=== PATIENT | female | born 1990 | race African-American/Black ===

== ENCOUNTER 2016-12-25 06:03 | Inpatient (IN) ==
[2016-12-25] MEDS ORDERED: MEPERIDINE 50 MG/1 ML VIAL IV PRN (06:32)
[2016-12-25] MEDS ORDERED: TERBUTALINE 1 MG/1 ML VIAL SUBCUT PRN (06:32)
[2016-12-25] MEDS ORDERED: ONDANSETRON 4 MG/2 ML VIAL IV PRN (06:32)
[2016-12-25] MEDS ORDERED: LACTATED RINGERS 500 ML IV PRN (06:32)
[2016-12-25] MEDS: LACTATED RINGERS 1,000 ML IV SCH ×2 (06:40→17:00)
[2016-12-25] MEDS ORDERED: OXYTOCIN/LR 20 UNIT/1,000 ML BAG IV SCH (07:00)
[2016-12-25 07:42] LABS: Basophils % 0.1 % (0.0-0.8); Eosinophils # 0.1 10*3/uL (0.0-0.87); Eosinophils % 0.9 % (0.00-10.9); Hematocrit 28.9 VOL% (35.7-47.0); Hemoglobin 8.9 GM/DL (12.0-16.0); Immature Granulocytes % 0.3 %; Immature Granulocytes Absolute 0.03 #; Lymphocytes # 2.4 10*3/uL (1.4-4.0); Lymphocytes % 26.4 % (21.3-54.2); Mean Corpuscular HGB Conc 30.8 GM/DL (32-36); Mean Corpuscular Hemoglobin 27 PG (27-34); Mean Corpuscular Volume 86.8 FL (87-102); Mean Platelet Volume 10.2 FL (9.6-12.0); Monocytes # 0.5 10*3/uL (0.11-0.8); Monocytes % 5.8 % (1.7-12.7); Neutrophils % 66.5 % (38.7-73.9); Platelet Count 287 T/CUMM (130-400); Red Blood Count 3.33 MC/CUMM (3.8-5.5); Red Cell Distribution Width 13.2 % (9.3-17.3); White Blood Count 9.1 T/CUMM (4-12)
[2016-12-25] MEDS ORDERED: diphenhydrAMINE 50 MG/1 ML VIAL IV PRN ×2 (08:36)
[2016-12-25] MEDS ORDERED: PROMETHAZINE 25 MG/1 ML VIAL IM ONE (08:36)
[2016-12-25] MEDS ORDERED: hydrOXYzine HCL 25 MG/1 ML VIAL IM PRN (08:36)
[2016-12-25] MEDS ORDERED: LACTATED RINGERS 1,000 ML IV ONE (08:36)
[2016-12-25] MEDS ORDERED: ePHEDrine 50 MG/ML AMP IV PRN (08:36)
[2016-12-25] MEDS ORDERED: FAMOTIDINE 20 MG/2 ML VIAL IV ONE (08:36)
[2016-12-25] MEDS ORDERED: CITRIC ACID/SODIUM CITRATE 30 ML UDCUP PO ONE (08:36)
[2016-12-25] MEDS ORDERED: fentaNYL 2 MCG/ROPIV 0.2% EPID 150 ML EPIDURAL SCH (08:36)
[2016-12-25] MEDS ORDERED: ePHEDrine 50 MG/ML AMP ONE (08:51)
--- NOTE | 2016-12-25 08:57 | OB/GYN History & Physical ---
History of Present Illness Chief complaint: In for elective induction of labor due to term History of present illness: Ms. Dixon is a 26 year old female who is a 3 para 2 living 2. Her VICTOR HUGO is 01/01/2015 for an estimated gestational age of 39 weeks. She presents to the labor department for elective induction of labor due to term . The risks and benefits have been thoroughly discussed with this patient and significant other and plan of care has been discussed with Dr. Willis, all parties are in agreement with plan. The patient received her care at the [facility], she received routine care. She had an uneventful course of . The patient has had 2 previous vaginal delivers and she reported no complications with either . labs: She is a positive, RPR is nonreactive, hepatitis B is negative, HIV is negative, rubella is immune, Pap smear was within normal limits. GBS culture negative. Review of systems is negative with the exception of above Home Medications Medication Instructions Recorded Confirmed Type Levothyroxine Tab [Synthroid Tab] 25 mcg PO DAILY@0700 01/16/15 12/25/16 History Allergies Allergy/AdvReac Type Severity Reaction Status Date / Time adhesive tape Allergy Severe RASH Verified 12/25/16 06:32 Penicillins Allergy Unknown Unknown/Unable Verified 12/25/16 06:32 to obtain Sulfa (Sulfonamide Allergy Unknown Unknown/Unable Verified 12/25/16 06:32 Antibiotics) to obtain 12 point system: reviewed and no additional remarkable complaints except as stated Medical,Surgical,& Family Hx - Medical History Endocrine: History of: Thyroid Disorder (HYPOTHYROIDISM) Musculoskeletal: History of: Back/Neck Problems (CHRONIC BACK PAIN), Degenerative Disk Disease Reproductive: History of: Sexually Transmitted Disorders (chlamydia) - Surgical History Thoracic Surgeries: Patient denies;: Organ Transplant HEENT Surgeries: Surgical HX of: Tonsilectomy & Adenoidectomy Abdominal Surgeries: Surgical HX of: Abdominal Surgery (cysts removed from abdomen), Appendectomy Orthopedic Surgeries: Surgical HX of;: Spinal Surgery (back surgery) - Family History Family History: Reports;: Family Cancer (MATERNAL grandmother ovarian ca 69), Family Diabetes (father 39), Family Hypertension (mother 44, father 34, grandmother 65, grandfather 50's), Family Stroke (grandfather 73) Denies;: Family Anesthesia Reaction, Family Heart Disease, Family Psychiatric Problems - Social History Smoking Status: Never smoker Frequency of Alcohol Use: None Type of Drug Use: None Marital Status: Single Lives With:: Significant Other Functional capacity: independent ambulation 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 - Constitutional Vitals: Vital Signs Temp Pulse Resp BP Pulse Ox 12/25/16 07:58 97.6 F 74 18 100/64 99 General appearance: mild distress - Antepartum / Post Antepartum Exam Cervix -Dilatation: 3-4 cm Effacement: 70% Station: -1 Rupture: AROM Presentation: vtx Heart Rate: 140s Breast: bilateral: normal Abdomen obstetrics: Present: bowel sounds normal Vagina: Present: normal moisture Uterus exam: Present: enlarged - Respiratory Respiratory exam: Present: clear to auscultation bilaterally - Cardiovascular Cardiovascular exam: Present: regular rate and rhythm - GI/Abdominal GI/Abdominal exam: Present: normal bowel sounds, soft - Extremities Exam Extremities exam: Present: normal inspection - Neurological Exam Neurological exam: Present: alert, oriented X3 - Psychiatric Psychiatric exam: Present: normal affect, normal mood - Skin Skin exam: Present: normal color, warm Assessment and Plan (1) Term Status: Acute Assessment and plan: Admit IV Fluids IV Pitocin per protocol Epidural if desired AROM Anticipate Current Visit: Yes Results - Labs CBC & BMP: 12/25/16 07:09
--- NOTE | 2016-12-25 09:03 | Event Note ---
845: AROM with clear fluid noted. Pt tolerated procedure well.
[2016-12-25 10:51] LABS: Apearance,Urine CLEAR (Clear); Bilirubin,Urine Negative (Negative); Blood, Urine Negative (Negative); Glucose,Urine (UA) Negative (Negative); Ketones,Urine 20 mg/dL (Negative); Mucus,Urine Few /LPF (Occasional); Nitrite,Urine Negative (Negative); Protein,Urine 30 MG/DL; RBC,Urine 2 /HPF (0-4); Squamous Epithelial Cell,Urine Occasional /HPF (0-10); Urine Color Yellow (Yellow); Urine Specific Gravity 1.025 (1.001-1.035); WBC,Urine 1 /HPF (0-6)
[2016-12-25] MEDS ORDERED: miSOPROStol 200 MCG TABLET ONE (14:29)
[2016-12-25] MEDS ORDERED: METHYLERGONOVINE 0.2 MG/1 ML AMP ONE (14:29)
[2016-12-25] MEDS ORDERED: LIDOCAINE 1% 50 ML VIAL ONE (14:30)
--- NOTE | 2016-12-25 15:30 | Event Note ---
HPI: Ms. Dixon presented for elective induction of labor due to term . The risks and benefits were thoroughly discussed with patient, plan of care was discussed with Dr. Willis in all parties were in agreement with plan. Stage I: The patient was admitted she received IV fluids and IV Pitocin per protocol. Artificial rupture membranes was performed with clear fluid noted. The patient received an epidural for pain control. She progressed in labor with a CAT 1 tracing. The patient had an uneventful course of labor. Stage II: The patient was complete and complaining of pressure and desired to push. She pushed for approximately 5 minutes after which time the infant's head was delivered. The mouth and nose suctioned on the perineum. The remainder of the infant was delivered at 1514, a viable male was noted. Apgars were 8 at 1 minute and 9 at 5 minutes. weight was 6 pounds and 8 oz. A cord pH was obtained and sent to the lab. Stage III: Spontaneous delivery of a Simmons placenta with a 3 vessel cord noted. The placenta was further examined and appeared to be grossly intact. The vagina and cervix was inspected with a small perineal abrasion noted which was hemostatic. Otherwise no tears or lacerations were noted. Estimated blood loss was approximately 125 mL. At the time of dictation mother and baby are both in stable condition.
[2016-12-25] MEDS ORDERED: DIPH/TET/ACEL PERT BOOSTER VACCINE 0.5 ML VIAL IM ONE (15:31)
[2016-12-25] MEDS ORDERED: ACETAMINOPHEN 325 MG TABLET PO PRN (15:31)
[2016-12-25] MEDS ORDERED: LANOLIN 50% CREAM 0.3 OZ TUBE TOP PRN (15:31)
[2016-12-25] MEDS ORDERED: MEASLES/MUMPS/RUBELLA VACCINE 0.5 ML VIAL SUBCUT ONE (15:31)
[2016-12-25] MEDS ORDERED: oxyCODONE/ACETAMINOPHEN 5-325 MG TABLET PO PRN (15:31)
[2016-12-25] MEDS ORDERED: RHO(D) IMMUNE GLOBULIN 300 MCG SYRINGE IM ONE (15:31)
[2016-12-25] MEDS ORDERED: HYDROCORTISONE 2.5% RECTAL CREAM 30 GM TUBE TOP PRN (15:31)
[2016-12-25] MEDS ORDERED: BISACODYL 10 MG SUPP RECTAL PRN (15:31)
[2016-12-25] MEDS ORDERED: OXYTOCIN/LR 20 UNIT/1,000 ML BAG IV ONE (15:31)
[2016-12-25] MEDS ORDERED: BENZOCAINE 20%/MENTHOL 0.5% SPRAY 56 GM CAN TOP PRN (15:31)
[2016-12-25] MEDS ORDERED: WITCH HAZEL PADS 100/JAR TOP PRN (15:31)
[2016-12-25] MEDS ORDERED: ACETAMINOPHEN/CODEINE 300-30 MG TABLET PO PRN (15:34)
[2016-12-25 15:41] LABS: Cord Venous Blood HCO3 24.2 MMOL/L; Cord Venous Blood PCO2 42.6 MMHG; Cord Venous Blood PO2 29.7 MMHG
[2016-12-25] MEDS: IBUPROFEN 800 MG TABLET PO PRN ×2 (16:22→22:31)
[2016-12-25] MEDS: DOCUSATE SODIUM 100 MG CAPSULE PO SCH (21:20)
[2016-12-25] MEDS: oxyCODONE/ACETAMINOPHEN 5-325 MG TABLET PO PRN (21:20)
[2016-12-26] MEDS: oxyCODONE/ACETAMINOPHEN 5-325 MG TABLET PO PRN ×4 (04:37→21:25)
[2016-12-26] MEDS: IBUPROFEN 800 MG TABLET PO PRN ×2 (04:37→21:22)
[2016-12-26 06:44] LABS: Basophils % 0.2 % (0.0-0.8); Eosinophils # 0.1 10*3/uL (0.0-0.87); Hematocrit 27.8 VOL% (35.7-47.0); Hemoglobin 8.8 GM/DL (12.0-16.0); Immature Granulocytes % 0.3 %; Immature Granulocytes Absolute 0.03 #; Lymphocytes # 3.2 10*3/uL (1.4-4.0); Lymphocytes % 27.9 % (21.3-54.2); Mean Corpuscular HGB Conc 31.7 GM/DL (32-36); Mean Corpuscular Hemoglobin 27 PG (27-34); Mean Corpuscular Volume 85.5 FL (87-102); Mean Platelet Volume 10.1 FL (9.6-12.0); Monocytes # 0.8 10*3/uL (0.11-0.8); Monocytes % 6.8 % (1.7-12.7); Neutrophils # 7.3 10*3/uL (1.4-7.4); Neutrophils % 63.8 % (38.7-73.9); Platelet Count 250 T/CUMM (130-400); Red Blood Count 3.25 MC/CUMM (3.8-5.5); Red Cell Distribution Width 13.2 % (9.3-17.3); White Blood Count 11.4 T/CUMM (4-12)
[2016-12-26] MEDS ORDERED: oxyCODONE/ACETAMINOPHEN 5-325 MG TABLET PO PRN (07:39)
[2016-12-26] MEDS: DOCUSATE SODIUM 100 MG CAPSULE PO SCH ×2 (08:31→21:22)
--- NOTE | 2016-12-26 09:34 | OB/GYN Progress Note ---
Assessment and Plan (1) Term Status: Acute Assessment and plan: Admit IV Fluids IV Pitocin per protocol Epidural if desired AROM Anticipate Current Visit: Yes (2) Vaginal delivery Status: Acute Assessment and plan: Initiate routine orders. 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 Bonding with . 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 - Constitutional Vitals: Vital Signs Temp Pulse Resp BP Pulse Ox 12/26/16 07:19 97.2 F L 73 20 113/67 97 12/26/16 04:00 97.5 F L 78 20 119/62 96 12/25/16 23:50 97.9 F 64 20 126/68 98 12/25/16 22:50 97.7 F 73 20 109/65 97 12/25/16 21:50 97.5 F L 76 20 108/55 96 12/25/16 21:20 97.6 F 77 18 117/61 98 12/25/16 20:50 97.8 F 69 18 104/52 96 12/25/16 20:00 97.5 F L 84 22 138/60 General appearance: no acute distress - Antepartum / Post Antepartum Exam Breast: bilateral: normal Abdomen obstetrics: Present: bowel sounds normal Vagina: Present: discharge (light lochia rubra) Uterus exam: Present: enlarged (FF ML) Anus/Rectum: Present: normal perianal skin - Respiratory Respiratory exam: Present: clear to auscultation bilaterally - Cardiovascular Cardiovascular exam: Present: regular rate and rhythm - GI/Abdominal GI/Abdominal exam: Present: normal bowel sounds, soft - Extremities Exam Extremities exam: Present: normal inspection - Neurological Exam Neurological exam: Present: alert, oriented X3 - Skin Skin exam: Present: normal color, warm Results - Labs CBC & BMP: 12/26/16 06:25
--- NOTE | 2016-12-26 11:21 | Anesthesia ---
Anesthesia Post OP - Post Ansesthetic Evaluation Patient seen in post op: Yes Resp: within normal limits CV: within normal limits Mental: within normal limits Temp: within normal limits [id number]: within normal limits Nausea and Vomiting: within normal limits Pain: within normal limits
[2016-12-27] MEDS: IBUPROFEN 800 MG TABLET PO PRN (08:18)
[2016-12-27] MEDS: oxyCODONE/ACETAMINOPHEN 5-325 MG TABLET PO PRN (08:19)
[2016-12-27] MEDS: DOCUSATE SODIUM 100 MG CAPSULE PO SCH (09:44)
[2016-12-27] MEDS ORDERED: FERROUS SULFATE 325 MG TABLET PO SCH (10:00)
[2016-12-27 11:13] VITALS: BP 130/71
--- NOTE | 2016-12-27 12:46 | Discharge Summary ---
Hospital Course - Hospital Course Hospital Course: day #2 Status post vaginal Patient is ambulating well, voiding, passing gas and has had a bowel movement. Extremities a well within normal limits neurologically grossly intact Status post vaginal DC today follow-up our office in 6 weeks Specialty Discharge - Follow Up or Referrals Follow up with: Jose M Willis MD [Physician] - 02/06/17 10:00 am Discharge Plan - Discharge Data Condition at Discharge: Stable Discharge Diet: advance to your usual diet Activity: increase activity as tolerated Hygiene: no restrictions Contact your physician if you experience:: fever over 101, Bleeding - Discharge Medications New Ferrous Sulfate Tab [Feosol Original Tab] 325 mg PO BID #60 tablet Acetamin/Codeine 300-30 Tab [Tylenol/Codeine #3] 2 tablet PO Q4H PRN #30 tablet PRN Reason: Pain Mild (1-3) Ibuprofen Tab [Motrin Tab] 800 mg PO Q6H PRN #30 tablet PRN Reason: Pain Moderate (4-7) No Action Levothyroxine Tab [Synthroid Tab] 25 mcg PO DAILY@0700 - Follow Up or Referral Follow Up: Jose M Willis MD [Physician] - 02/06/17 10:00 am - Forms/Instructions Instructions: Perineal Care (DC), Vaginal Delivery (DC), Bleeding (DC) Exam - Constitutional Vitals: Period Temp Pulse Resp BP Sys/Mathew Pulse Ox Last 24 Hr 97.3 F-98.1 F 72-86 18-20 105-130/47-71 97-99 Discharge Results Procedures and tests throughout hospitalization: Pending Orders 12/25/16 06:32 Urinalysis Routine DS: Provider Date of admission: 12/25/16 06:32 Primary care physician: . No PCP Attending physician on admission: Jose M Willis MD Consults: 12/25/16 06:32 Consult to Anesthesiology [CONS] Routine Consulting Provider: Reason for Anesthesiology: Epidural Consult Comment: Epidural for pain managment 12/25/16 06:47 Consult to Dietitian [CONS] Routine Reason for Dietitian: Diet Recommendations 12/25/16 15:31 Consult to Automation Tester [CONS] Routine Consult Automation Tester: Breast Feeding Discharging clinician: Jose M Willis MD
== END 2016-12-27 14:10 | disposition home or self-care (01) | DRG 775 ==
LOC: N.LDOUT 06:03 → N.LD 06:08 → N.OB 20:50
PROVIDERS: ADMIT Obstetrics & Gynecology; ATTEND Obstetrics & Gynecology

== ENCOUNTER 2019-01-16 06:26 | Inpatient (IN) ==
[2019-01-16] MEDS ORDERED: MEPERIDINE 50 MG/1 ML VIAL IV PRN (06:47)
[2019-01-16] MEDS ORDERED: OXYTOCIN/LR 20 UNIT/1,000 ML BAG IV SCH (07:00)
[2019-01-16 07:20] LABS: Basophils % 0.2 % (0.0-0.8); Eosinophils # 0.1 10*3/uL (0.0-0.87); Eosinophils % 0.6 % (0.00-10.9); Hematocrit 28.5 VOL% (35.7-47.0); Hemoglobin 8.6 GM/DL (12.0-16.0); Immature Granulocytes % 0.6 %; Immature Granulocytes Absolute 0.05 #; Lymphocytes # 1.8 10*3/uL (1.4-4.0); Lymphocytes % 20.4 % (21.3-54.2); Mean Corpuscular HGB Conc 30.2 GM/DL (32-36); Mean Corpuscular Hemoglobin 26 PG (27-34); Mean Corpuscular Volume 86.9 FL (87-102); Mean Platelet Volume 9.6 FL (9.6-12.0); Monocytes # 0.5 10*3/uL (0.11-0.8); Monocytes % 5.5 % (1.7-12.7); Neutrophils # 6.4 10*3/uL (1.4-7.4); Neutrophils % 72.7 % (38.7-73.9); Platelet Count 256 T/CUMM (130-400); Red Blood Count 3.28 MC/CUMM (3.8-5.5); Red Cell Distribution Width 13.6 % (9.3-17.3); White Blood Count 8.8 T/CUMM (4-12)
[2019-01-16 07:44] LABS: Alanine Aminotransferase < 9 U/L (13-56); Albumin 2.4 G/DL (3.4-5.0); Alkaline Phosphatase 203 U/L (45-117); Aspartate Amino Transferase 12 U/L (0-37); Blood Urea Nitrogen 5 MG/DL (7-18); Calcium 8.4 MG/DL (8.5-10.1); Glucose 79 MG/DL (74-106); Osmolality,Calculated 272.5 MOS/KG (273-304); Potassium 3.7 MMOL/L (3.5-5.1); Sodium 139 MMOL/L (136-145); Total Protein 6.4 G/DL (6.4-8.3)
[2019-01-16] MEDS: LACTATED RINGERS 1,000 ML IV SCH ×4 (07:50→21:29)
[2019-01-16] MEDS ORDERED: PROMETHAZINE 25 MG/1 ML VIAL IM ONE (08:57)
[2019-01-16] MEDS ORDERED: hydrOXYzine HCL 25 MG/1 ML VIAL IM PRN (08:57)
[2019-01-16] MEDS ORDERED: CITRIC ACID/SODIUM CITRATE 30 ML UDCUP PO ONE (08:57)
[2019-01-16] MEDS ORDERED: FAMOTIDINE 20 MG/2 ML VIAL IV ONE (08:57)
[2019-01-16] MEDS ORDERED: diphenhydrAMINE 50 MG/1 ML VIAL IV PRN (08:57)
[2019-01-16] MEDS ORDERED: NALOXONE 0.4 MG/ML VIAL IV PRN (08:57)
[2019-01-16] MEDS ORDERED: fentaNYL 2 MCG/ROPIV 0.2% EPID 100 ML EPIDURAL SCH (09:00)
[2019-01-16] MEDS: CLINDAMYCIN INJ 900 MG in PREMIX 1 EACH IV SCH ×2 (09:15→16:29)
[2019-01-16] MEDS: ePHEDrine 50 MG/ML AMP IV PRN ×2 (10:36→10:41)
[2019-01-16] MEDS: ONDANSETRON 4 MG/2 ML VIAL IV PRN ×2 (11:08→16:51)
[2019-01-16 11:26] LABS: Apearance,Urine CLEAR (Clear); Bilirubin,Urine Negative (Negative); Blood, Urine Negative (Negative); Glucose,Urine (UA) Negative (Negative); Ketones,Urine 80 mg/dL (Negative); Mucus,Urine Few /LPF (Occasional); Nitrite,Urine Negative (Negative); Protein,Urine 30 MG/DL; RBC,Urine 2 /HPF (0-4); Urine Color Yellow (Yellow); Urine Specific Gravity 1.025 (1.001-1.035); WBC,Urine <1 /HPF (0-6)
[2019-01-16] MEDS ORDERED: miSOPROStol 200 MCG TABLET ONE (19:40)
[2019-01-16] MEDS ORDERED: TRANEXAMIC ACID 1,000 MG/10 ML VIAL ONE (19:41)
[2019-01-16] MEDS ORDERED: METHYLERGONOVINE 0.2 MG/1 ML AMP ONE (19:41)
[2019-01-16] MEDS ORDERED: CARBOPROST TROMETHAMINE 250 MCG/ML AMP IM ONE (19:41)
[2019-01-16] MEDS ORDERED: LIDOCAINE 1% 50 ML VIAL ONE (19:44)
[2019-01-17] MEDS: CLINDAMYCIN INJ 900 MG in PREMIX 1 EACH IV SCH (00:44)
[2019-01-17] MEDS ORDERED: MEASLES/MUMPS/RUBELLA VACCINE 0.5 ML VIAL SUBCUT ONE (05:23)
[2019-01-17] MEDS ORDERED: ACETAMINOPHEN 325 MG TABLET PO PRN (05:23)
[2019-01-17] MEDS ORDERED: oxyCODONE/ACETAMINOPHEN 5-325 MG TABLET PO PRN (05:23)
[2019-01-17] MEDS ORDERED: DIPH/TET/ACEL PERT BOOSTER VACCINE 0.5 ML VIAL IM ONE (05:23)
[2019-01-17] MEDS ORDERED: HYDROCORTISONE 2.5% RECTAL CREAM 30 GM TUBE TOP PRN (05:23)
[2019-01-17] MEDS ORDERED: RHO(D) IMMUNE GLOBULIN 300 MCG SYRINGE IM ONE (05:23)
[2019-01-17] MEDS ORDERED: WITCH HAZEL PADS 100/JAR TOP PRN (05:23)
[2019-01-17] MEDS ORDERED: LANOLIN 50% CREAM 0.3 OZ TUBE TOP PRN (05:23)
[2019-01-17] MEDS ORDERED: ONDANSETRON 4 MG/2 ML VIAL IV PRN (05:23)
[2019-01-17] MEDS ORDERED: BISACODYL 10 MG SUPP RECTAL PRN (05:23)
[2019-01-17] MEDS ORDERED: OXYTOCIN/LR 20 UNIT/1,000 ML BAG IV ONE (05:23)
[2019-01-17] MEDS ORDERED: BENZOCAINE 20%/MENTHOL 0.5% SPRAY 56 GM CAN TOP PRN (05:23)
[2019-01-17] MEDS: IBUPROFEN 800 MG TABLET PO PRN ×2 (06:45→23:29)
[2019-01-17] MEDS: oxyCODONE/ACETAMINOPHEN 5-325 MG TABLET PO PRN ×3 (09:04→23:29)
[2019-01-17] MEDS: DOCUSATE SODIUM 100 MG CAPSULE PO SCH ×2 (16:51→20:43)
[2019-01-18 02:15] LABS: Basophils % 0.2 % (0.0-0.8); Eosinophils # 0.2 10*3/uL (0.0-0.87); Eosinophils % 1.6 % (0.00-10.9); Hematocrit 24.2 VOL% (35.7-47.0); Hemoglobin 7.5 GM/DL (12.0-16.0); Immature Granulocytes % 0.5 %; Immature Granulocytes Absolute 0.05 #; Lymphocytes # 2.8 10*3/uL (1.4-4.0); Lymphocytes % 28.6 % (21.3-54.2); Mean Corpuscular Hemoglobin 27 PG (27-34); Mean Corpuscular Volume 85.5 FL (87-102); Mean Platelet Volume 9.8 FL (9.6-12.0); Monocytes # 0.6 10*3/uL (0.11-0.8); Monocytes % 6.4 % (1.7-12.7); Neutrophils # 6.1 10*3/uL (1.4-7.4); Neutrophils % 62.7 % (38.7-73.9); Platelet Count 221 T/CUMM (130-400); Red Blood Count 2.83 MC/CUMM (3.8-5.5); Red Cell Distribution Width 13.6 % (9.3-17.3); White Blood Count 9.8 T/CUMM (4-12)
[2019-01-18] MEDS: FERROUS SULFATE 325 MG TABLET PO SCH ×2 (09:58→20:51)
[2019-01-18] MEDS: DOCUSATE SODIUM 100 MG CAPSULE PO SCH ×2 (09:58→20:51)
[2019-01-18] MEDS: oxyCODONE/ACETAMINOPHEN 5-325 MG TABLET PO PRN ×3 (10:11→23:53)
[2019-01-18] MEDS: IBUPROFEN 800 MG TABLET PO PRN ×2 (11:31→20:51)
[2019-01-18] MEDS: cephALEXin 500 MG CAPSULE PO SCH ×2 (15:55→21:01)
[2019-01-18] MEDS ORDERED: MAGNESIUM HYDROXIDE SUSP 30 ML UDCUP PO PRN (23:21)
[2019-01-19] MEDS: IBUPROFEN 800 MG TABLET PO PRN (04:29)
[2019-01-19] MEDS: oxyCODONE/ACETAMINOPHEN 5-325 MG TABLET PO PRN (05:53)
[2019-01-19 07:32] VITALS: BP 136/84
[2019-01-19] MEDS: cephALEXin 500 MG CAPSULE PO SCH (08:10)
[2019-01-19] MEDS: DOCUSATE SODIUM 100 MG CAPSULE PO SCH (08:11)
[2019-01-19] MEDS: FERROUS SULFATE 325 MG TABLET PO SCH (08:11)
== END 2019-01-19 12:25 | disposition home or self-care (01) | DRG 560 ==
LOC: N.LDOUT 06:26 → N.LD 06:28 → N.OB 01-17 10:17
PROVIDERS: ADMIT Obstetrics & Gynecology; ATTEND Obstetrics & Gynecology